=== PATIENT | female | born 1995 | race Caucasian/White ===

== ENCOUNTER 2020-08-23 18:15 | Emergency (ER) | payer MEDICAID ==
[~2020-08-23] VITALS: Ht 152.4 cm; Wt 80.0 kg
[2020-08-23 18:43] LABS: BASOPHILS 0.6 % (0-2); EOSINOPHILS 1.8 % (0-7); HEMATOCRIT 43.8 % (36.0-48.0); HEMOGLOBIN 14.5 g/dL (12-16); LYMPHOCYTES 27.6 % (15-50); MCH 27.4 pg (26.0-34.0); MCHC 33.1 g/dL (31.0-37.0); MCV 82.9 fL (80.0-100.0); MONOCYTES 6.9 % (2-11); NEUTROPHILS 63.1 % (40-80); PLATELET COUNT 327 10x3/uL (130-400); RBC 5.28 10x6/uL (4.00-5.40); RDW 12.6 % (11.5-14.5); WBC 6.9 10x3/uL (4.8-10.8)
[2020-08-23 18:46] VITALS: BP 134/87; Ht 152.4 cm; Wt 80.0 kg
[2020-08-23] MEDS ORDERED: ABILIFY10 MG PO (18:47)
[2020-08-23] MEDS ORDERED: STRATTERA10 MG PO (18:47)
[2020-08-23] MEDS ORDERED: MOBIC7.5 MG PO (18:47)
[2020-08-23] MEDS ORDERED: PROZAC20 MG PO (18:47)
[2020-08-23 18:54] LABS: CALC OSMOLALITY 278 mosm/kg (275-300); CALCIUM 9.2 mg/dL (8.5-10.1); CARBON DIOXIDE 25.8 mmol/L (21.0-32.0); CHLORIDE - SERUM 103 mmol/L (98-107); CREATININE - SERUM 0.8 mg/dL (0.6-1.3); GLUCOSE 96 mg/dL (74-106); POTASSIUM - SERUM 3.7 mmol/L (3.5-5.1); SODIUM 140 mmol/L (136-145); UREA NITROGEN 13 mg/dL (7-18); eGFR NON AFRICAN AMERICAN > 90 mL/min (90-120)
[2020-08-23 19:06] LABS: ALBUMIN 4.2 g/dL (3.4-5.0); ALKALINE PHOSPHATASE 80 U/L (30-120); ALT (SGPT) 31 U/L (10-68); AMYLASE - SERUM 37 U/L (25-115); BILIRUBIN - TOTAL 0.17 mg/dL (0.2-1.3); LIPASE 136 U/L (73-393)
[2020-08-23 19:16] LABS: TROPONIN-I < 0.017 ng/mL (0.000-0.060)
[2020-08-23 19:16] LABS: HCG URINE NEGATIVE (NEGATIVE)
[2020-08-23 19:17] LABS: BILIRUBIN NEGATIVE (NEGATIVE); KETONE NEGATIVE mg/dL (< 1+); NITRITE NEGATIVE (NEGATIVE); PH 6.5 (5.0-8.0); UROBILINOGEN NORMAL mg/dL (< 2); WHITE CELLS - URINE <1 HPF (0-4)
[2020-08-23] MEDS ORDERED: COLACE100 MG PO (21:43)
== END 2020-08-23 23:03 | disposition home or self-care (01) ==
LOC: D.ER 18:15
PROVIDERS: Family Medicine
DX: R10.32 Left lower quadrant pain (principal); K59.00 Constipation, unspecified